=== PATIENT | female | born 1965 | race African-American/Black ===

== ENCOUNTER 2020-08-02 06:27 | Day surgery (SDC) | payer MEDICAID, OTHER ==
[2020-07-31 11:26] LABS: COVID AG,FIA SOURCE NASOPHARYNGEAL
[~2020-08-02] VITALS: Ht 157.5 cm; Wt 61.4 kg
[2020-08-02] MEDS ORDERED: ALBUTEROL SULFATE 2.5 MG/0.5 ML NEB SOLUTION NEB ONE (06:28)
[2020-08-02] MEDS ORDERED: SODIUM CHLORIDE 0.9% 1,000 ML IV ONE (06:30)
[2020-08-02] MEDS ORDERED: SODIUM CHLORIDE 0.9% 1,000 ML ONE (06:35)
[2020-08-02] MEDS ORDERED: BACL10TA PO (06:45)
[2020-08-02] MEDS ORDERED: ASCO500C6 PO (06:45)
[2020-08-02] MEDS ORDERED: ACET-2123 PO (06:45)
[2020-08-02] MEDS ORDERED: GABA-1181 PO (06:49)
[2020-08-02] MEDS ORDERED: CHOL100018 PO (06:49)
[2020-08-02] MEDS ORDERED: VITA-328 PO (06:49)
[2020-08-02] MEDS ORDERED: DOCU-202 PO (06:49)
[2020-08-02] MEDS ORDERED: MOM30 PO (06:49)
[2020-08-02] MEDS ORDERED: FentaNYL CITRATE PF 100 MCG/2 ML VIAL ONE (08:00)
[2020-08-02] MEDS ORDERED: MIDAZOLAM HCL 2 MG/2 ML VIAL ONE (08:00)
[2020-08-02] MEDS ORDERED: MethylPREDNISolone SOD SUCC 125 MG/2 ML VIAL ONE (08:57)
[2020-08-02] MEDS ORDERED: MethylPREDNISolone SOD SUCC 125 MG/2 ML VIAL IVP ONE (09:00)
[2020-08-02] MEDS ORDERED: BENZOCAINE 20% 50 MCG/SPRAY 57 GM TP ONE (16:44)
[2020-08-02] MEDS ORDERED: LIDOCAINE 2% 30 ML JELLY TP ONE (16:44)
[2020-08-02] MEDS ORDERED: LIDOCAINE 4% 50 ML SOLUTION TP ONE (16:44)
[2020-08-02] MEDS ORDERED: OXYGEN THERAPY IH SCH (20:00)
== END 2020-08-02 10:05 | disposition home or self-care (01) ==
LOC: SURGERY 06:27
PROVIDERS: ATTEND Internal Medicine Critical Care Medicine
DX: J38.4 Edema of larynx (principal); B37.0 Candidal stomatitis
CPT/HCPCS: 31623; 31624; 71045; 87015; 87070; 87101; 87206; 87220; 87426; 88108; 88184; 88185; 88312; C9803; J2250; J2930; J3010; J7030; J7613; Z7610

== ENCOUNTER 2022-10-04 07:02 | Day surgery (SDC) | payer OTHER ==
[2022-10-02 09:54] LABS: COVID AG,FIA SOURCE NASAL SWAB
[~2022-10-04] VITALS: Ht 157.5 cm; Wt 58.6 kg
[~2022-10-04 07:02] MED LIST: ACET-2123 PO; ASCO500C6 PO; ATOR40TA28 PO; BACL10TA PO; CHOL25TA4 PO; DOCU-202 PO; DOXY-354 PO; GABA-1181 PO; MIDO5TAB29 PO; SODIUM CHLORIDE 0.9% 1,000 ML IV ONE; VITA-328 PO
[2022-10-04] MEDS ORDERED: BENZOCAINE 20% 50 MCG/SPRAY 57 GM TP ONE (07:03)
[2022-10-04] MEDS ORDERED: LIDOCAINE 4% 50 ML SOLUTION TP ONE (07:03)
[2022-10-04] MEDS ORDERED: LIDOCAINE 2% 11 ML JELLY TP ONE (07:03)
[2022-10-04] MEDS ORDERED: SODIUM CHLORIDE 0.9% 1,000 ML ONE (07:37)
[2022-10-04] MEDS ORDERED: MIDAZOLAM HCL 2 MG/2 ML VIAL ONE (08:00)
[2022-10-04] MEDS ORDERED: FentaNYL CITRATE PF 100 MCG/2 ML VIAL ONE (08:01)
[2022-10-04] MEDS ORDERED: MethylPREDNISolone SOD SUCC 125 MG/2 ML VIAL ONE (10:07)
[2022-10-04] MEDS ORDERED: MethylPREDNISolone SOD SUCC 125 MG/2 ML VIAL IVP ONE (10:15)
== END 2022-10-04 12:00 | disposition home or self-care (01) ==
LOC: SURGERY 07:02
PROVIDERS: ATTEND Internal Medicine Critical Care Medicine
DX: R05.9 Cough, unspecified (principal); R05.3 Chronic cough; R91.1 Solitary pulmonary nodule; J98.09 Other diseases of bronchus, not elsewhere classified; J98.8 Other specified respiratory disorders; Z20.822 Contact with and (suspected) exposure to COVID-19; Z79.899 Other long term (current) drug therapy
CPT/HCPCS: 87426; 31623; 88112; 87206; 87101; 87220; 87070; 31624; 71045; 87015; C9803; J3010; J2250; J2930; Q9967; J7030; Z7610